=== PATIENT | male | born 1955 | race Caucasian/White ===

== ENCOUNTER 2018-05-11 18:48 | Inpatient (IN) | payer MEDICARE, SELFPAY ==
[2018-05-11] VITALS (64 sets, daily range): BP systolic 52–159; BP diastolic 21–129; PULSE 53–127; RESP 11–32; TEMP 34.4–36.1; O2SAT 76–100
[2018-05-11] MEDS: Normal Saline 1,000 ML 1000 ML IV (18:45)
[2018-05-11 19:13] LABS: Lactate-non-spesis 12.8 mmol/l (0.6-1.4)
[2018-05-11 19:18] LABS: Abs Immature Grans 0.17 k/cumm (0.0-0.09); HGB 12.3 g/dL (13.5-17.5); Mean Corp. HGB Concentration 32.4 g/dL (32.0-36.0); Mean Corpuscular Hemoglobin 36.6 pg (27.0-33.0); Mean Corpuscular Volume 113.1 fL (80-95); Mean Platelet Volume 9.4 fL (8.0-11.0); Platelet Count 151 x1000/uL (130-400); RBC 3.36 m/cumm (4.50-6.00); White Blood Cell Count 8.14 k/cumm (4.4-10.8)
--- NOTE | 2018-05-11 19:18 | DI.RAD_ITS ---
SYMPTOM/DIAGNOSIS: HANGING CERVICAL SPINE: AP view only was obtained. This film is not adequate to exclude cervical fracture. There is apparent NG tube and ET tube in place. Please see accompanying chest jessie report.
[2018-05-11 19:32] LABS: HCO3 12 mmol/L (22-28); pO2 113 mmHg (83-108); sO2 95 % (94-98); tCO2 13 mmol/L (22-29)
[2018-05-11 19:36] LABS: Absolute Eosinophil Count 0.08 k/cumm (0.0-0.7); Absolute Lymphocyte Count 6.43 k/cumm (1.2-3.4); Absolute Monocyte Count 0.49 k/cumm (0.11-0.7); Atypical Lymphocytes % 0; Diff Comment Manual Differential; Macrocytosis 1+; Polychromasia Present
[2018-05-11 19:38] LABS: ALT 323 U/L (12-78); AST 282 U/L (15-37); Albumin 3.3 g/dL (3.4-5.0); Alkaline Phosphatase 80 U/L (46-116); Anion Gap 16.6 mmol/L (3-11); BUN 12 mg/dL (7-18); Bilirubin, Total 0.2 mg/dL (0.2-1.0); CO2 21.4 mmol/L (21.0-32.0); CREATININE 1.37 mg/dL (0.70-1.30); Calcium 9.2 mg/dL (8.5-10.1); Chloride 102 mmol/L (98-107); Estimated GFR 52.83 (mL/min/1.73m2); Glucose 267 mg/dL (70-100); Magnesium 2.7 mg/dL (1.8-2.4); Potassium 4.3 mmol/L (3.5-5.1); Sodium 140 mmol/L (136-145); Total Protein 6.8 g/dL (6.4-8.2)
[2018-05-11 19:40] LABS: Troponin I 0.11 ng/mL (0.00-0.06)
[2018-05-11 19:44] LABS: FIO2 80 %; FIO2L Vent L; Site Left Radial; pCO2 62 mmHg (34-47)
--- NOTE | 2018-05-11 19:51 | DI.VRAD_ITS ---
EXAM: XR Chest, 1 View EXAM DATE/TIME: 05/11/2018 6:57 PM CLINICAL HISTORY: 62 years old, male; Device placement; Ett placement (vent status); Patient HX: Unresponsive TECHNIQUE: XR of the chest, 1 view. COMPARISON: CR CHEST 2 VIEWS PA,LAT 12/01/2015 6:07 PM FINDINGS: Tubes, catheters and devices: ET tube in good position. Feeding tube tip in stomach. Lungs: Bilateral opacities concerning for multifocal pneumonia. Pleural space: No pneumothorax. No sizable pleural effusion. Heart/Mediastinum: Cardiac size cannot be accurately assessed in this projection. Bones/joints: Bilateral shoulder arthroplasties. IMPRESSION: 1. ET tube in good position. 2. Bilateral opacities concerning for multifocal pneumonia. Dictated and Authenticated by: Lorenzo Burks MD. Ordering:CHRIS Alonso MD
[2018-05-11 20:06] LABS: Bilirubin Negative (Negative); Blood Small (Negative); Clarity Cloudy; Glucose Negative (Negative); Ketones Negative (Negative); Leukocyte Esterase Negative (Negative); Nitrite Negative (Negative); Specific Gravity 1.015 (1.005-1.025); Urobilinogen 0.2 EU/dL (Up TO 0.2)
--- NOTE | 2018-05-11 20:08 | ED.GENADUL_ITS ---
Discharge Plan Discharge Details Chief Complaint: CodeBlue Reason For Visit: [place] Primary Care Provider: GIULIANA NGUYEN ED Provider: Gavin Kelly Home Meds and New Rx's Prescriptions: No Action simvastatin 10 MG tablet 10 mg PO DAILY RF: 0 polyethylene glycol 3350 [Miralax] 17 GM powder in packet 17 g PO DAILY Qty: 255 RF: 0 aspirin [Aspirin Low-Strength] 81 MG tablet,chewable 325 mg PO DAILY RF: 0 milk thistle 150 MG capsule 1 cap PO DAILY RF: 0 omeprazole 20 MG capsule,delayed release(DR/EC) 20 mg PO DAILY RF: 0 clopidogrel [Plavix] 75 MG tablet 75 mg PO DAILY RF: 0 paroxetine HCl 20 MG tablet 1 tab PO DAILY RF: 0 Medical Decision Making Transported via EMS with CPR in progress for a hanging with associated drug overdose. T tube was emergently placed and Mr. Toney was treated with additional epinephrine. He had persistent asystole with no cardiac activity on 2 pulse checks. A decision was made to discontinue resuscitative. However, shortly after CPR and ventilation was discontinued, he had return of a normal rhythm on instructor of spanish and palpable pulse. BEedside ultrasound confirmed good cardiac activity. 2 additional IVs were placed and Mr. Crowley was resuscitated with IV crystalloid and, after a second episode of CPR which responded to epinephrine, and amiodarone drip was started. He had persistent recurrent bradycardia and hypotension which responded to epinephrine infusion. Chest x-ray confirmed ETT and NGT placement as well as pulmonary airway disease. Cervical x-ray diagnostic for no obvious cervical fracture. Patient admitted to the ICU for further resuscitation and management. Medical Records Medical records reviewed: Yes I reviewed the patient's medical records. Imaging Data Radiologic Study: Attestation: I personally reviewed and interpreted this imaging study as follows: Imaging: Ultrasound (Bedside cardiac) My impression: Initially cardiac standstill. Sub-evaluations consistent with cardiac activity. No RVS, pericardial effusion, interpreted independently and contemporaneously by myself. Radiologic Study #2: Attestation: I personally reviewed and interpreted this imaging study as follows: Imaging: X-Ray (Portable chest x-ray) My impression: ETT and NGT in good position. Diffuse airspace disease. Interpreted independently and contemporaneously by myself. Reviewed radiology report. Radiologist's impression: Same Radiologic Study #3: Attestation: I personally reviewed and interpreted this imaging study as follows: Imaging: X-Ray (Cervical) My impression: No cervical fracture. Pulmonary disease. Interpreted independently and contemporaneously by myself. Reviewed radiology report. Radiologist's impression: Same ECG Data Attestation: I personally reviewed and interpreted this ECG (s) as follows: Prior ECG tracings: not available for review Interpretation: Sinus rhythm 87 bpm. Intraventricular conduction delay nonspecific ST change interpreted independently and contemporaneously by myself. . 62-year-old gentleman with a past medical history which includes depression, cardiac disease and GERD transported here via EMS after being found with a self- inflicted hanging injury. According to veteran appeals reviewer and later the patient's ex-, he had been alone for approximately 20 minutes when his found him hanging and unresponsive. He also found empty bottles of morphine and gabapentin which she had apparently taken prior to hanging himself. His notes that he had been more depressed recently and verbalized earlier in the day that he no longer wanted to live. He also drank alcohol regularly prior to this event. His ex- caught the rope immediately on finding him and called EMS. EMS found Mr. Crowley unresponsive with agonal respirations but a palpable pulse. An IO and supraglottic airway was placed. However, en route, he had multiple episodes of cardiac arrest with ROSC after CPR and cardiac epinephrine. On arrival, Loli is unresponsive with no palpable pulse and CPR in progress. HPI General Date/Time Provider Initiated Documentation: 05/11/18 18:54 . Related Data Home Medications Medication Instructions Recorded Confirmed simvastatin 10 mg PO DAILY tab-cap 02/11/15 10/06/16 milk thistle 1 cap PO DAILY 03/22/15 10/06/16 aspirin [Aspirin Low-Strength] 325 mg PO DAILY tab-cap 09/25/15 10/06/16 polyethylene glycol 3350 [Miralax] 17 g PO DAILY #255 gm 09/25/15 10/06/16 omeprazole 20 mg PO DAILY 12/25/15 10/06/16 clopidogrel [Plavix] 75 mg PO DAILY 08/08/16 10/06/16 paroxetine HCl 1 tab PO DAILY 08/08/16 10/06/16 Allergies Allergy/AdvReac Type Severity Reaction Status Date / Time hay fever Allergy Mild sinus Uncoded 10/06/16 09:44 congestion General Stated Complaint: CodeBlue EMILY: 1 Review of Systems Review of Systems Unobtainable due to mental status PFSH Social History Smoking and Tabacco status: Former Tobacco Use Exam Const General: patient mechanically ventilated (Unresponsive with a supraglottic airway in place) HENMT Head: normocephalic Ears: external ears normal General nose exam: external nose normal Face and sinus: normal facial exam Mouth: oral mucosae normal Eyes Pupils: not reactive and pupil size (5mm) bilaterally Neck Neck: other (Cervical collar and ice) Chest Chest: normal inspection of the chest Resp Effort & Inspection: other (apneic) Auscultation: clear to auscultation bilaterally (With mechanical vent) Cardio Pulses: No normal peripheral pulses Other: No heart sounds by ausuctation Skin Wounds: no wounds Neuro General: not alert and not awake (Unresponsive) Sensory Exam: other Psych Mental Status: other (Unresponsive) Mood: other (Unresponsive) Course Vital Signs Respiratory Rate 14 05/11/18 18:45 Pulse Oximetry 100 05/11/18 18:45 Respiratory Rate 14 05/11/18 19:20 Pulse Oximetry 100 05/11/18 19:20 Respiratory End-tidal CO2 64 05/11/18 19:20 Fraction of Inspired Oxygen (FIO2) 80 05/11/18 19:20 Lab/Test Results Lab/Test Results: Laboratory Tests Range/Units 05/11/18 05/11/18 05/11/18 19:00 19:00 19:00 WBC (4.4-10.8) k/cumm 8.14 RBC (4.50-6.00) m/cumm 3.36 L Hgb (13.5-17.5) g/dL 12.3 L Hct (40.0-50.0) % 38.0 L MCV (80-95) fL 113.1 H MCH (27.0-33.0) pg 36.6 H MCHC (32.0-36.0) g/dL 32.4 RDW (11.8-14.1) % 14.0 Plt Count (130-400) x1000/uL 151 MPV (8.0-11.0) fL 9.4 Immature Gran % 0.0 Neutrophils % 11.0 Band Neutrophils % % 0.0 Lymphocytes % 79.0 Atypical Lymphs % 0 Monocytes % 6.0 Eosinophils % 1.0 Basophils % 0.0 Absolute Neutrophils (1.2-6.7) k/cumm 0.90 L Absolute Lymphocytes (1.2-3.4) k/cumm 6.43 H Absolute Monocytes (0.11-0.7) k/cumm 0.49 Absolute Eosinophils (0.0-0.7) k/cumm 0.08 Absolute Basophils (0.0-0.2) k/cumm 0.00 Metamyelocytes % 1.0 Myelocytes % 2.0 Differential Comment Manual differential RBC Morphology See below Polychromasia Present Macrocytosis 1+ Sample Site pCO2 (34-47) mmHg pO2 (83-108) mmHg O2 Saturation (94-98) % ABG pH (7.35-7.45) ABG HCO3 (22-28) mmol/L ABG Total CO2 (22-29) mmol/L ABG Base Excess (-3-3) mmol/L Oxygen Liter Flow L FiO2 % Sodium (136-145) mmol/L 140 Potassium (3.5-5.1) mmol/L 4.3 Chloride (98-107) mmol/L 102 Carbon Dioxide (21.0-32.0) mmol/L 21.4 Anion Gap (3-11) mmol/L 16.6 H BUN (7-18) mg/dL 12 Creatinine (0.70-1.30) mg/dL 1.37 H Estimated GFR/1.73 m2 (mL/min/1.73m2) 52.83 Glucose (70-100) mg/dL 267 H Lactate (0.6-1.4) mmol/l 12.8 H Calcium (8.5-10.1) mg/dL 9.2 Magnesium (1.8-2.4) mg/dL 2.7 H Total Bilirubin (0.2-1.0) mg/dL 0.2 AST (15-37) U/L 282 H ALT (12-78) U/L 323 H Alkaline Phosphatase (46-116) U/L 80 Troponin I (0.00-0.06) ng/mL 0.11 H* Total Protein (6.4-8.2) g/dL 6.8 Albumin (3.4-5.0) g/dL 3.3 L Range/Units 05/11/18 19:23 WBC (4.4-10.8) k/cumm RBC (4.50-6.00) m/cumm Hgb (13.5-17.5) g/dL Hct (40.0-50.0) % MCV (80-95) fL MCH (27.0-33.0) pg MCHC (32.0-36.0) g/dL RDW (11.8-14.1) % Plt Count (130-400) x1000/uL MPV (8.0-11.0) fL Immature Gran % Neutrophils % Band Neutrophils % % Lymphocytes % Atypical Lymphs % Monocytes % Eosinophils % Basophils % Absolute Neutrophils (1.2-6.7) k/cumm Absolute Lymphocytes (1.2-3.4) k/cumm Absolute Monocytes (0.11-0.7) k/cumm Absolute Eosinophils (0.0-0.7) k/cumm Absolute Basophils (0.0-0.2) k/cumm Metamyelocytes % Myelocytes % Differential Comment RBC Morphology Polychromasia Macrocytosis Sample Site Left radial pCO2 (34-47) mmHg 62 H* pO2 (83-108) mmHg 113 H O2 Saturation (94-98) % 95 ABG pH (7.35-7.45) 6.90 L* ABG HCO3 (22-28) mmol/L 12 L ABG Total CO2 (22-29) mmol/L 13 L ABG Base Excess (-3-3) mmol/L Oxygen Liter Flow L Vent FiO2 % 80 Sodium (136-145) mmol/L Potassium (3.5-5.1) mmol/L Chloride (98-107) mmol/L Carbon Dioxide (21.0-32.0) mmol/L Anion Gap (3-11) mmol/L BUN (7-18) mg/dL Creatinine (0.70-1.30) mg/dL Estimated GFR/1.73 m2 (mL/min/1.73m2) Glucose (70-100) mg/dL Lactate (0.6-1.4) mmol/l Calcium (8.5-10.1) mg/dL Magnesium (1.8-2.4) mg/dL Total Bilirubin (0.2-1.0) mg/dL AST (15-37) U/L ALT (12-78) U/L Alkaline Phosphatase (46-116) U/L Troponin I (0.00-0.06) ng/mL Total Protein (6.4-8.2) g/dL Albumin (3.4-5.0) g/dL Procedures Intubation Time out performed: Yes sedative: none paralytic: Rocuronium Mg Given: 100 Laryngoscope: fiberoptic video scope ET Tube Size: 7.5 ET Tube Uncuffed: No Tube Secured Depth (cm): 25 Tube Secured Location: lips Tube Placement Confirmation: visualized tube passing through cords, equal breath sounds bilaterally and confirmation by capnometry Patient Tolerated Procedure: well Intubation Complications: none Additional Comments: X-ray confirms tube 1 cm above the lavonne. Tube withdrawn 1 cm Critical Care Time Critical Care Time: Yes Total Critical Care Time: 60 Attestation: Time excludes intubation and bedside ultrasound
[2018-05-11 20:16] LABS: Bacteria Few HPF (Negative); C & S Indicated? No/Sq. Contamination; Casts Negative LPF (Negative); Crystals Negative HPF (Negative); Epithelial Cells Many HPF (Negative); Mucus Negative (Negative); WBC >50 HPF (0-5)
--- NOTE | 2018-05-11 20:58 | NUR.NOTE ---
Nursing Note: Prior to arrival patient was given 3 rounds of epi, 2 Narcan and an IO was placed in the LLE. 1834:Patient arrived in the Emergency department with CPR in progress. The patient was being bagged though a supraglottic airway. Patient still connected to EMS monitor no shock advised CPR resumed 1836: 100 mg of rocuronium given in the LLE IO by paul raymundo 183: Airway removed 1838: Provider intubating patient at this time with a 7 1/2 in ET tube using the glidescope no resistance with bagging felt. 183: lungs sounds present bilaterally 183: no cardiac activity noted with Ultrasound as observed by Provider. Provider observes a clot in R ventricle and no blood flow. NG tube placed L nare 68cm by Rebecca Molina RN green bile suctioned at this time. 1840: Round of epi given in the E IO site by MALGORZATA raymundo CPR started 1840: time of called by Provider. 1843: this continuity writer is at bed side a knotices bilateral radial pulses with movement in his chest no breathing. Provider notified ROSC/ spontaneous cardiac rhythm 1844: patient was placed on the ventilator. 184: NS bolus was started in the E IO site with a pressure bag. 1850: Tidal vol. 560 peep 10 Fi02 of 100% 1855: delgado placed 1907: pulse lost at this time CPR started 1908: Epi given at this time LAC site. 190: pulse regained at this time hr of 107 1910: patient taken off the back board with C- Spin precautions maintained. X ray taken for tube placement. 191: x ray finished at this time. 1916: amiodarone push 150 bolus given LAC and drip started at 1 mg/ min 1919: RAC IV established by Rishi Lane RN 18 G. 1924: this continuity writer notified provider in a change in patients color and in his heartrate, patients HR was slowing decreasing into the 50's and 40's. 1925: 3mg of EPI given in the RAC by Malgorzata RAYMUNDO 1926: pulse lost at this time CPR started 7 MG epi given in the RAC. 0: pulse regained at this time hr in the 70's. 1941: Epi drip started at 1 MCG/ min 1950: Epi drip titrated to 5 mcg/min 1952: IV fluids L #2 and L #3 finished in bilateral AC's and 2 new NS L hung at this time.
--- NOTE | 2018-05-11 21:20 | DI.VRAD_ITS ---
EXAM: XR Spine, 1 view. EXAM DATE/TIME: 05/11/2018 8:29 PM CLINICAL HISTORY: 62 years old, male; Injury or trauma; Injury history: Hanging; Injury: Hanging, c-spine, portable image; Initial encounter; Patient status: Unconscious; Injury date: 05/11/2018 TECHNIQUE: XR of the spine, 1 view. COMPARISON: CR XR cervical sp gaitan trauma 2-3V 05/11/2018 8:26 PM FINDINGS: Limitations: Cervical vertebra from C1-C6 are visualized. C7 is not confidently seen. Tubes, catheters and devices: Endotracheal tube is present visualized. Nasogastric tube is partially visualized. Vertebrae: Multilevel degenerative changes of the vertebra are present, as manifested by multilevel anterior osteophytes, endplate scelrosis, and multilevel posterior disc osteophyte complexes. No acutely displaced fracture or dislocation is grossly visualized in this limited films. Lungs: Diffuse haziness throughout the lungs favored diffuse airspace disease. Soft tissues: No acute findings. IMPRESSION: 1. Grossly, no acutely displaced fracture or dislocation is identified within the limits of this examination. Consider further evaluation with CT if there is further clinical concern for possible cervical spine fractures. 2. Bilateral pulmonary airspace disease, please review chest films performed on the same date Dictated and Authenticated by: Darwin Santiago MD. Ordering:CHRIS Alonso MD
[2018-05-11 22:47] LABS: Troponin I 1.88 ng/mL (0.00-0.06)
--- NOTE | 2018-05-11 23:35 | W.PM.HP.N ---
Date of service: 05/11/18 Time of Service: 23:35 Assessment and Plan (1) Cardiopulmonary arrest: Current visit: Yes Status: Acute secondary to drug overdose and hanging causing severe hypoxic cerebral ischemia and cardiac ischemia. Patient w/ successfuly ROSC but with poor prognosis d/t length of time of hypoxic event. Will continue supportive care w/ vasopressors, mechanical ventilation and antiarrythmic meds until family can decide on no code status and move towards comfort only measures (2) Acute respiratory failure: Current visit: Yes Status: Acute multifactorial including drug overdose of morphine and gabapentin in setting of acute alcohol intoxication and subsequent hanging causing restricted airflow/hypoxia. there also appears to be some pneumonia on CXR as well suggesting either a pre-existing pneumonia or an aspiration event. Will get blood and sputum cultures and begin on 4 hr infusions of Zosyn and add doxycycline for atypical coverage although I doubt this is simple CAP but rather is a result of his hanging and acute drug ingestion. Will also use stress dose corticosteroids and scheduled aerosolized bronchodilators. 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 For now just supportive care until he is extubated. Qualifiers: Encounter type: initial encounter Qualified Code(s): T71.162A - Asphyxiation due to hanging, intentional self-harm, initial encounter (4) Non-STEMI (non-ST elevated myocardial infarction): Current visit: Yes Status: Acute probably type 2 demand ischemic event d/t respiratory failure leading to CP arrest and CPR. For now will heparinize and give rectal ASA. check echo in a.m. to assess LV function. consult cardiology in a.m. (5) Acute kidney injury (nontraumatic): Current visit: Yes Status: Acute d/t to CP arrest and circulatory shock. cont. supportive care maintaining MAP pressures of 65 mm or higher, cont. iv fluids. monitor U.O. (6) Hypoxic brain injury: Current visit: Yes Status: Acute dismal prognosis based upon hx and exam. will check EEG in a.m., consult w/ neuro for prognostication but I expect that there will be no brain recovery even if he survives his CP arrest (7) Aspiration pneumonia: Current visit: Yes Status: Acute plan as above for broad spectrum antibiotics, aerosolized bronchodilators, stress dose corticosteroids, mechanical ventilatory support until family decision can be made regarding code status/comfort measures and withdrawal of life support Qualifiers: Aspiration pneumonia type: unspecified Laterality: bilateral Lung location: lower lobe of lung Qualified Code(s): J69.0 - Pneumonitis due to inhalation of food and vomit (8) Depression: Current visit: No Status: Chronic no treatment at this time unless he survives. Qualifiers: Active/Remission status: currently active Depression Type: major depressive disorder Major depression episode severity: severe Major depression recurrence: recurrent Psychotic features: without psychotic features Qualified Code(s): F33.2 - Major depressive disorder, recurrent severe without psychotic features History of Present Illness Chief Complaint: suicide attempt; cardiopulmonary arrest Narrative: 62 yr old male / [facility] of depression who presented to the ER via EMS with CPR in progress d/t cardiopulmonary arrest due to intentional drug overdose of morphine and gabapentin followed by hanging. Per ER notes, EMS reported and confirmed that the patient had been more depressed recently and had expressed feelings of no longer wanting to live. She reported that he had been drinking about 6 16 ounce beers prior to tonights event and that when she found him hanging and unresponsive she immediately cut down the rope. She says that when she found him he was still on his feet but he had a come along rope w/ ratchet around his neck suspended from the ceiling of their foyer. She indicated that he had been alone for about 20 minutes when she found him. She found empty prescription bottles for gabapentin and morphine. He took an unknown quantity of gabapentin but took approximately 30 tablets of morphine CR 15 mg tabs. According to EMS he wa found to have agonal respirations and palpable pulse on arrival. EMS started an IO for vascular access and placed a supraglottic airway. However, en route the patient had multiple episodes of cardiac arrest necessitating CPR and epinephrine. On arrival to the ER he was pulseless and CPR was in progress. While in the ER an ET tube was placed and the patient was given additional epinephrine. Due to persistent asystole confirmed by pulse checks and bedside echo, the decision had been made to call the code and pull the ET tube, however patient had return of sinus rhythm and ROSC. Addition iv's were placed and patient was given iv fluids and epinephrine drip for persistent hypotension. Patient was started on amiodarone for VT. CXR confirmed placement of NG and ETT tubes and c-spine xray showed no fractures. Patient was too unstable to go to CT scan for scan of head and neck. The patient was deemed by Dr. Kelly as too unstable for transport to a tertiary ICU. His exwife who was with the patient indicated that she still wanted full resuscitation for now. Review of Systems Review of Systems Unobtainable due to mental status [facility] Medical History Lumbar degenerative disc disease (Chronic) Chronic back pain (Chronic) Depression (Chronic) Surgical History S/P shoulder surgery (Resolved) Social History Smoking and Tabacco status: Former Tobacco Use Meds Home Medications Medication Instructions Recorded Confirmed Type simvastatin 10 mg PO DAILY tab-cap 02/11/15 10/06/16 History milk thistle 1 cap PO DAILY 03/22/15 10/06/16 History aspirin [Aspirin Low-Strength] 325 mg PO DAILY tab-cap 09/25/15 10/06/16 History polyethylene glycol 3350 [Miralax] 17 g PO DAILY #255 gm 09/25/15 10/06/16 History omeprazole 20 mg PO DAILY 12/25/15 10/06/16 History clopidogrel [Plavix] 75 mg PO DAILY 08/08/16 10/06/16 History paroxetine HCl 1 tab PO DAILY 08/08/16 10/06/16 History Allergies Allergy/AdvReac Type Severity Reaction Status Date / Time hay fever Allergy Mild sinus Uncoded 10/06/16 09:44 congestion Exam Const General: patient mechanically ventilated Nutritional Appearance: average body habitus Orientation: obtunded Limitations: altered mental status [facility] Head: normal to inspection, no palpable skull fracture, atraumatic and no acral cyanosis Ears: hearing grossly normal bilaterally and EAC's normal General nose exam: external nose normal, nares normal and nasal mucous membranes and turbinates normal Face and sinus: normal facial exam Mouth: oral mucosae normal, lip normal and tongue normal Eyes Alignment and Position: alignment normal Periorbital: periorbital findings normal Eyelids: eyelids normal Conjunctivae: conjunctivae normal Sclera: sclerae normal Cornea: corneas normal Pupils: anisocoria right pupil size greater than left, dilated on the right, fixed bilaterally, not reactive bilaterally and pupil size on the right 10 and on the left 5 EOM: movement deficit Direct ophthalmoscopy: no papilledema Neck Neck: trachea midline, no JVD and other (difficult to evaluate as patient is in cervical collar) Carotids: normal carotid upstroke Chest Chest: other (multiple tatoos over chest) Resp Effort & Inspection: other (ventilated, breathing at set ventilator rate) Auscultation: bronchovesicular breath sounds bilaterally, rhonchi upper bilaterally and wheezes scattered wheezes Cardio Jugular venous pressure: no JVD Palpation: normal PMI Rate: regular rate Rhythm: regular rhythm Pulses: posterior tibial pulses present bilaterally diminished and dopplerable and dorsalis pedis pulses present bilaterally diminished and dopplerable GI Inspection: normal to inspection Palpation: no hepatosplenomegaly Percussion: normal to percussion Auscultation: hypoactive bowel sounds Skin General skin exam: no mottling, no purpura and other (multiple tatoos over chest and arms) Lesions: no lesions Rashes: no rashes Trauma: no lacerations or abrasions Neuro General: obtunded (intubated and unresponsive to noxious stimuli; lack of corneal reflexes) and unable to assess gait Cranial Nerves: pupils not ERRL (anisocoria w/ dilated r. pupil at 10 mm, L pupil 5 mm, both are unresponse) and other (unable to assess CN function; unresponsive to noxious stimuli; comatose) Cognition: abnormal cognition Speech: other (intubated) Motor: other (decreased tone in all 4 extremities; absent reflexes) Sensory Exam: other (absent sensation to noxious stimulation) DTR's: Rt Triceps: 0, Lt Triceps: 0, Rt Biceps: 0, Lt Biceps: 0, Rt Patellar: 0, Lt Patellar: 0, Rt Ankle: 0 and Lt Ankle: 0 Plantar Reflexes: Upgoing: bilateral Comatose Patient: corneal reflex absent, doll's eye reflex absent and response to noxious stimuli absent Pupils: Dilated: right, Mid position: left and Fixed/non-reactive: bilateral Results Labs : 05/12/18 07:00 05/12/18 07:00 Laboratory Results - last 24 hr 05/11/18 05/11/18 05/11/18 19:00 19:00 19:00 WBC 8.14 RBC 3.36 L Hgb 12.3 L Hct 38.0 L MCV 113.1 H MCH 36.6 H MCHC 32.4 RDW 14.0 Plt Count 151 MPV 9.4 Immature Gran % 0.0 Neutrophils % 11.0 Band Neutrophils % 0.0 Lymphocytes % 79.0 Atypical Lymphs % 0 Monocytes % 6.0 Eosinophils % 1.0 Basophils % 0.0 Absolute Neutrophils 0.90 L Absolute Lymphocytes 6.43 H Absolute Monocytes 0.49 Absolute Eosinophils 0.08 Absolute Basophils 0.00 Metamyelocytes 1.0 Myelocytes 2.0 Differential Comment Manual differential RBC Morphology See below Polychromasia Present Macrocytosis 1+ Sample Site pCO2 pO2 O2 Saturation ABG pH ABG HCO3 ABG Total CO2 ABG Base Excess Oxygen Liter Flow FiO2 Sodium 140 Potassium 4.3 Chloride 102 Carbon Dioxide 21.4 Anion Gap 16.6 H BUN 12 Creatinine 1.37 H Estimated GFR/1.73 m2 52.83 Glucose 267 H Lactate 12.8 H Calcium 9.2 Magnesium 2.7 H Total Bilirubin 0.2 AST 282 H ALT 323 H Alkaline Phosphatase 80 Troponin I 0.11 H* Total Protein 6.8 Albumin 3.3 L Urine Color Urine Clarity Urine pH Ur Specific [place] Urine Protein Urine Ketones Urine Blood Urine Nitrite Urine Bilirubin Urine Urobilinogen Ur Leukocyte Esterase Urine RBC Urine WBC Ur Epithelial Cells Urine Crystals Urine Bacteria Urine Casts Urine Mucus Urine Other Ur Culture Indicated? Urine Glucose 05/11/18 05/11/18 05/11/18 19:23 19:56 22:00 WBC RBC Hgb Hct MCV MCH MCHC RDW Plt Count MPV Immature Gran % Neutrophils % Band Neutrophils % Lymphocytes % Atypical Lymphs % Monocytes % Eosinophils % Basophils % Absolute Neutrophils Absolute Lymphocytes Absolute Monocytes Absolute Eosinophils Absolute Basophils Metamyelocytes Myelocytes Differential Comment RBC Morphology Polychromasia Macrocytosis Sample Site Left radial pCO2 62 H* pO2 113 H O2 Saturation 95 ABG pH 6.90 L* ABG HCO3 12 L ABG Total CO2 13 L ABG Base Excess Oxygen Liter Flow Vent FiO2 80 Sodium Potassium Chloride Carbon Dioxide Anion Gap BUN Creatinine Estimated GFR/1.73 m2 Glucose Lactate Calcium Magnesium Total Bilirubin AST ALT Alkaline Phosphatase Troponin I 1.88 H* Total Protein Albumin Urine Color Straw Urine Clarity Cloudy Urine pH 7.0 Ur Specific [place] 1.015 Urine Protein 100 H Urine Ketones Negative Urine Blood Small H Urine Nitrite Negative Urine Bilirubin Negative Urine Urobilinogen 0.2 Ur Leukocyte Esterase Negative Urine RBC 5-10 H Urine WBC >50 Ur Epithelial Cells Many Urine Crystals Negative Urine Bacteria Few Urine Casts Negative Urine Mucus Negative Urine Other Many renal Ur Culture Indicated? No/sq. contamination Urine Glucose Negative Last Vital Signs Temp 34.7 C L 05/11/18 22:21 Pulse 78 05/11/18 22:21 Resp 14 05/11/18 22:45 BP 134/84 05/11/18 22:21 Pulse Ox 90 L 05/11/18 22:45
--- NOTE | 2018-05-11 23:38 | HPE_ITS ---
Date of service: 05/11/18 Time of Service: 23:35 Assessment and Plan (1) Cardiopulmonary arrest: Current visit: Yes Status: Acute secondary to drug overdose and hanging causing severe hypoxic cerebral ischemia and cardiac ischemia. Patient w/ successfuly ROSC but with poor prognosis d/t length of time of hypoxic event. Will continue supportive care w/ vasopressors, mechanical ventilation and antiarrythmic meds until family can decide on no code status and move towards comfort only measures (2) Acute respiratory failure: Current visit: Yes Status: Acute multifactorial including drug overdose of morphine and gabapentin in setting of acute alcohol intoxication and subsequent hanging causing restricted airflow/hypoxia. there also appears to be some pneumonia on CXR as well ca ggesting either a pre-existing pneumonia or an aspiration event. Will get blood and sputum cultures and begin on 4 hr infusions of Zosyn and add doxycycline for atypical coverage although I doubt this is simple CAP but rather is a result of his hanging and acute drug ingestion. Will also use stress dose corticosteroids and scheduled aerosolized bronchodilators. Will adjust his vent setting to keep MAP under 30 while trying to correct severe acidosis and hypoxemia Qualifiers: Respiratory failure complication: hypoxia Qualified Code(s): J96.01 - Acute respiratory failure with hypoxia (3) Suicide attempt by hanging: Current visit: Yes Status: Acute patient has had retirement severe depression although the family is unaware of any prior attempts at suicide. For now just supportive care until he is extubated. Qualifiers: Encounter type: initial encounter Qualified Code(s): T71.162A - Asphyxiation due to hanging, intentional self-harm, initial encounter (4) Non-STEMI (non-ST elevated myocardial infarction): Current visit: Yes Status: Acute probably type 2 demand ischemic event d/t respiratory failure leading to CP arrest and CPR. For now will heparinize and give rectal ASA. check echo in a.m. to assess LV function. consult cardiology in a.m. (5) Acute kidney injury (nontraumatic): Current visit: Yes Status: Acute d/t to CP arrest and circulatory shock. cont. supportive care maintaining MAP pressures of 65 mm or higher, cont. iv fluids. monitor U.O. (6) Hypoxic brain injury: Current visit: Yes Status: Acute dismal prognosis based upon hx and exam. will check EEG in a.m., consult w/ neuro for prognostication but I expect that there will be no brain recovery even if he survives his CP arrest (7) Aspiration pneumonia: Current visit: Yes Status: Acute plan as above for broad spectrum antibiotics, aerosolized bronchodilators, stress dose corticosteroids, mechanical ventilatory support until family decision can be made regarding code status/comfort measures and withdrawal of life support Qualifiers: Aspiration pneumonia type: unspecified Laterality: bilateral Lung location: lower lobe of lung Qualified Code(s): J69.0 - Pneumonitis due to inhalation of food and vomit (8) Depression: Current visit: No Status: Chronic no treatment at this time unless he survives. Qualifiers: Active/Remission status: currently active Depression Type: major depressive disorder Major depression episode severity: severe Major depression recurrence: recurrent Psychotic features: without psychotic features Qualified Code(s): F33.2 - Major depressive disorder, recurrent severe without psychotic features History of Present Illness Chief Complaint: suicide attempt; cardiopulmonary arrest Narrative: 62 yr old male / H of depression who presented to the ER via EMS with CPR in progress d/t cardiopulmonary arrest due to intentional drug overdose of morphine and gabapentin followed by hanging. Per ER notes, EMS reported and confirmed that the patient had been more depressed recently and had expressed feelings of no longer wanting to live. She reported that he had been drinking about 6 16 ounce beers prior to tonights event and that when she found him hanging and unresponsive she immediately cut down the rope. She says that when she found him he was still on his feet but he had a come along rope w/ ratchet around his neck suspended from the ceiling of their foyer. She indicated that he had been alone for about 20 minutes when she found him. She found empty prescription bottles for gabapentin and morphine. He took an unknown quantity of gabapentin but took approximately 30 tablets of morphine CR 15 mg tabs. According to EMS he wa found to have agonal respirations and palpable pulse on arrival. EMS started an IO for vascular access and placed a supraglottic airway. However, en route the patient had multiple episodes of cardiac arrest necessitating CPR and epinephrine. On arrival to the ER he was pulseless and CPR was in progress. While in the ER an ET tube was placed and the patient was given additional epinephrine. Due to persistent asystole confirmed by pulse checks and bedside echo, the decision had been made to call the code and pull the ET tube, however patient had return of sinus rhythm and ROSC. Addition iv's were placed and patient was given iv fluids and epinephrine drip for persistent hypotension. Patient was started on amiodarone for VT. CXR confirmed placement of NG and ETT tubes and c-spine xray showed no fractures. Patient was too unstable to go to CT scan for scan of head and neck. The patient was deemed by Dr. Kelly as too unstable for transport to a tertiary ICU. His exwife who was with the patient indicated that she still wanted full resuscitation for now. Review of Systems Review of Systems Unobtainable due to mental status [facility] Medical History Lumbar degenerative disc disease (Chronic) Chronic back pain (Chronic) Depression (Chronic) Surgical History S/P shoulder surgery (Resolved) Social History Smoking and Tabacco status: Former Tobacco Use Meds Home Medications Medication Instructions Recorded Confirmed Type simvastatin 10 mg PO DAILY tab-cap 02/11/15 10/06/16 History milk thistle 1 cap PO DAILY 03/22/15 10/06/16 History aspirin [Aspirin Low-Strength] 325 mg PO DAILY tab-cap 09/25/15 10/06/16 H istory polyethylene glycol 3350 [Miralax] 17 g PO DAILY #255 gm 09/25/15 10/06/16 History omeprazole 20 mg PO DAILY 12/25/15 10/06/16 History clopidogrel [Plavix] 75 mg PO DAILY 08/08/16 10/06/16 History paroxetine HCl 1 tab PO DAILY 08/08/16 10/06/16 History Allergies Allergy/AdvReac Type Severity Reaction Status Date / Time hay fever Allergy Mild sinus Uncoded 10/06/16 09:44 congestion Exam Const General: patient mechanically ventilated Nutritional Appearance: average body habitus Orientation: obtunded Limitations: altered mental status [facility] Head: normal to inspection, no palpable skull fracture, atraumatic and no acral cyanosis Ears: hearing grossly normal bilaterally and EAC's normal General nose exam: external nose normal, nares normal and nasal mucous membranes and turbinates normal Face and sinus: normal facial exam Mouth: oral mucosae normal, lip normal and tongue normal Eyes Alignment and Position: alignment normal Periorbital: periorbital findings normal Eyelids: eyelids normal Conjunctivae: conjunctivae normal Sclera: sclerae normal Cornea: corneas normal Pupils: anisocoria right pupil size greater than left, dilated on the right, f ixed bilaterally, not reactive bilaterally and pupil size on the right 10 and on the left 5 EOM: movement deficit Direct ophthalmoscopy: no papilledema Neck Neck: trachea midline, no JVD and other (difficult to evaluate as patient is in cervical collar) Carotids: normal carotid upstroke Chest Chest: other (multiple tatoos over chest) Resp Effort & Inspection: other (ventilated, breathing at set ventilator rate) Auscultation: bronchovesicular breath sounds bilaterally, rhonchi upper bilaterally and wheezes scattered wheezes Cardio Jugular venous pressure: no JVD Palpation: normal PMI Rate: regular rate Rhythm: regular rhythm Pulses: posterior tibial pulses present bilaterally diminished and dopplerable a nd dorsalis pedis pulses present bilaterally diminished and dopplerable GI Inspection: normal to inspection Palpation: no hepatosplenomegaly Percussion: normal to percussion Auscultation: hypoactive bowel sounds Skin General skin exam: no mottling, no purpura and other (multiple tatoos over chest and arms) Lesions: no lesions Rashes: no rashes Trauma: no lacerations or abrasions Neuro General: obtunded (intubated and unresponsive to noxious stimuli; lack of corneal reflexes) and unable to assess gait Cranial Nerves: pupils not ERRL (anisocoria w/ dilated r. pupil at 10 mm, L pup il 5 mm, both are unresponse) and other (unable to assess CN function; unresponsive to noxious stimuli; comatose) Cognition: abnormal cognition Speech: other (intubated) Motor: other (decreased tone in all 4 extremities; absent reflexes) Sensory Exam: other (absent sensation to noxious stimulation) DTR's: Rt Triceps: 0, Lt Triceps: 0, Rt Biceps: 0, Lt Biceps: 0, Rt Patellar: 0, Lt Patellar: 0, Rt Ankle: 0 and Lt Ankle: 0 Plantar Reflexes: Upgoing: bilateral Comatose Patient: corneal reflex absent, doll's eye reflex absent and response to noxious stimuli absent Pupils: Dilated: right, Mid position: left and Fixed/non-reactive: bilateral Results Labs : 05/12/18 07:00 05/12/18 07:00 Laboratory Results - last 24 hr 05/11/18 05/11/18 05/11/18 19:00 19:00 19:00 WBC 8.14 RBC 3.36 L Hgb 12.3 L Hct 38.0 L MCV 113.1 H MCH 36.6 H MCHC 32.4 RDW 14.0 Plt Count 151 MPV 9.4 Immature Gran % 0.0 Neutrophils % 11.0 Band Neutrophils % 0.0 Lymphocytes % 79.0 Atypical Lymphs % 0 Monocytes % 6.0 Eosinophils % 1.0 Basophils % 0.0 Absolute Neutrophils 0.90 L Absolute Lymphocytes 6.43 H Absolute Monocytes 0.49 Absolute Eosinophils 0.08 Absolute Basophils 0.00 Metamyelocytes 1.0 Myelocytes 2.0 Differential Comment Manual differential RBC Morphology See below Polychromasia Present Macrocytosis 1+ Sample Site pCO2 pO2 O2 Saturation ABG pH ABG HCO3 ABG Total CO2 ABG Base Excess Oxygen Liter Flow FiO2 Sodium 140 Potassium 4.3 Chloride 102 Carbon Dioxide 21.4 Anion Gap 16.6 H BUN 12 Creatinine 1.37 H Estimated GFR/1.73 m2 52.83 Glucose 267 H Lactate 12.8 H Calcium 9.2 Magnesium 2.7 H Total Bilirubin 0.2 AST 282 H ALT 323 H Alkaline Phosphatase 80 Troponin I 0.11 H* Total Protein 6.8 Albumin 3.3 L Urine Color Urine Clarity Urine pH Ur Specific [place] Urine Protein Urine Ketones Urine Blood Urine Nitrite Urine Bilirubin Urine Urobilinogen Ur Leukocyte Esterase Urine RBC Urine WBC Ur Epithelial Cells Urine Crystals Urine Bacteria Urine Casts Urine Mucus Urine Other Ur Culture Indicated? Urine Glucose 05/11/18 05/11/18 05/11/18 19:23 19:56 22:00 WBC RBC Hgb Hct MCV MCH MCHC RDW Plt Count MPV Immature Gran % Neutrophils % Band Neutrophils % Lymphocytes % Atypical Lymphs % Monocytes % Eosinophils % Basophils % Absolute Neutrophils Absolute Lymphocytes Absolute Monocytes Absolute Eosinophils Absolute Basophils Metamyelocytes Myelocytes Differential Comment RBC Morphology Polychromasia Macrocytosis Sample Site Left radial pCO2 62 H* pO2 113 H O2 Saturation 95 ABG pH 6.90 L* ABG HCO3 12 L ABG Total CO2 13 L ABG Base Excess Oxygen Liter Flow Vent FiO2 80 Sodium Potassium Chloride Carbon Dioxide Anion Gap BUN Creatinine Estimated GFR/1.73 m2 Glucose Lactate Calcium Magnesium Total Bilirubin AST ALT Alkaline Phosphatase Troponin I 1.88 H* Total Protein Albumin Urine Color Straw Urine Clarity Cloudy Urine pH 7.0 Ur Specific [place] 1.015 Urine Protein 100 H Urine Ketones Negative Urine Blood Small H Urine Nitrite Negative Urine Bilirubin Negative Urine Urobilinogen 0.2 Ur Leukocyte Esterase Negative Urine RBC 5-10 H Urine WBC >50 Ur Epithelial Cells Many Urine Crystals Negative Urine Bacteria Few Urine Casts Negative Urine Mucus Negative Urine Other Many renal Ur Culture Indicated? No/sq. contamination Urine Glucose Negative Last Vital Signs Temp 34.7 C L 05/11/18 22:21 Pulse 78 05/11/18 22:21 Resp 14 05/11/18 22:45 BP 134/84 05/11/18 22:21 Pulse Ox 90 L 05/11/18 22:45
[2018-05-12] VITALS (56 sets, daily range): BP systolic 50–97; BP diastolic 14–62; PULSE 38–135; RESP 14–45; TEMP 36.1–37.7; O2SAT 91–99
[2018-05-12] MEDS: Lactated Ringers 1,000 ML 100 ML IV ×2 (00:23→01:12)
[2018-05-12 01:14] LABS: Troponin I 4.38 ng/mL (0.00-0.06)
[2018-05-12] MEDS: Normal Saline Flush 10 ML SYR IVP (01:32)
[2018-05-12 01:44] LABS: Abs Immature Grans 0.15 k/cumm (0.0-0.09); HCT 34.7 % (40.0-50.0); HGB 11.3 g/dL (13.5-17.5); Mean Corp. HGB Concentration 32.6 g/dL (32.0-36.0); Mean Corpuscular Hemoglobin 36.7 pg (27.0-33.0); Mean Corpuscular Volume 112.7 fL (80-95); Mean Platelet Volume 9.4 fL (8.0-11.0); RBC 3.08 m/cumm (4.50-6.00); RBC Distribution Width 14.2 % (11.8-14.1); White Blood Cell Count 18.17 k/cumm (4.4-10.8)
[2018-05-12 01:45] LABS: HCO3 (Venous) 13 mmol/L (22-28); TCO2 (Venous) 13 mmol/L (22-29); pCO2 (Venous) 55 mm/Hg (34-47); pO2 (Venous) 38 mm/Hg (28-44)
[2018-05-12 01:46] LABS: O2 Sat (Venous) 57 % (70-80)
[2018-05-12 01:48] LABS: Anion Gap 19.7 mmol/L (3-11); BUN 14 mg/dL (7-18); CO2 15.3 mmol/L (21.0-32.0); CREATININE 1.89 mg/dL (0.70-1.30); Calcium 7.4 mg/dL (8.5-10.1); Chloride 106 mmol/L (98-107); Estimated GFR 36.44 (mL/min/1.73m2); Glucose 292 mg/dL (70-100); Potassium 4.5 mmol/L (3.5-5.1); Sodium 141 mmol/L (136-145); pH (Venous) 6.98 (7.32-7.43)
[2018-05-12 01:56] LABS: Absolute Lymphocyte Count 2.54 k/cumm (1.2-3.4); Absolute Monocyte Count 0.91 k/cumm (0.11-0.7); Absolute Neutrophil Count 14.54 k/cumm (1.2-6.7)
[2018-05-12 01:57] LABS: Burr Cells (echinocyte) 2+; Diff Comment Manual Differential
[2018-05-12 01:58] LABS: Macrocytosis 2+; Ovalocytes 2+; Platelet Count 197 x1000/uL (130-400)
[2018-05-12] MEDS: Sodium Bicarbonate 50 MEQ/50 ML SYR 90 MEQ IVP (02:24)
[2018-05-12] MEDS: Hydrocortisone SOD SUC. 100 MG VIAL 50 MG IVP (02:42)
[2018-05-12 02:47] LABS: PTT Activated 34.8 sec (21.0-31.4)
[2018-05-12] MEDS: PIPERACILLIN/TAZO 3.375 GM in Normal Saline 50 ML IVPB (03:07)
[2018-05-12] MEDS: Albuterol/Ipratropium 3 ML UPD VIAL UPD (06:08)
[2018-05-12] MEDS: Pantoprazole 40 MG VIAL IVP (06:08)
--- NOTE | 2018-05-12 06:26 | DI.RAD_ITS ---
SYMPTOM/DIAGNOSIS: HANGING, RESPIRATORY FAILURE PORTABLE AP CHEST: Supine AP chest at 0628 hours. There is an endotracheal tube in good position and an NG tube in place, the tip of which lies in the stomach. There are bilateral diffuse pulmonary interstitial infiltrates which are nonspecific but which may represent ARDS in the clinical setting of asphyxiation. No other specific abnormality is seen. Appropriate follow up studies requested.
[2018-05-12 07:36] LABS: Abs Immature Grans 0.12 k/cumm (0.0-0.09); Absolute Basophil Count 0.02 k/cumm (0.0-0.2); Absolute Monocyte Count 1.23 k/cumm (0.11-0.7); Basophils % 0.2; HCT 29.8 % (40.0-50.0); HGB 9.4 g/dL (13.5-17.5); Lymphocytes % 10.6; Mean Corp. HGB Concentration 31.5 g/dL (32.0-36.0); Mean Corpuscular Volume 114.2 fL (80-95); Mean Platelet Volume 9.5 fL (8.0-11.0); Monocytes % 10.4; Neutrophils % 77.8; Platelet Count 156 x1000/uL (130-400); RBC 2.61 m/cumm (4.50-6.00); RBC Distribution Width 14.3 % (11.8-14.1); White Blood Cell Count 11.84 k/cumm (4.4-10.8)
[2018-05-12 07:43] LABS: Absolute Lymphocyte Count 1.26 k/cumm (1.2-3.4); Absolute Neutrophil Count 9.21 k/cumm (1.2-6.7)
--- NOTE | 2018-05-12 08:11 | NUR.NOTE ---
Nursing Note: Received patient from ED at 2200. Patient hypotensive and unresponsive showing no pupillary response and no gag reflex when suctioned. MD at bedside and new orders received (see EMR). Communicated with MD throughout shift regarding hypotension despite medications. MD changed dosages for fluids (see MAR). Family present at bedside and decided to change patient code status to DNR. Family updated on plan of care. Hypotension still persistent and MD aware.
[2018-05-12 08:17] LABS: Albumin 1.9 g/dL (3.4-5.0); Alkaline Phosphatase 77 U/L (46-116); Anion Gap 18.1 mmol/L (3-11); BUN 16 mg/dL (7-18); Bilirubin, Total 0.5 mg/dL (0.2-1.0); CO2 15.9 mmol/L (21.0-32.0); CREATININE 2.74 mg/dL (0.70-1.30); Calcium 7.1 mg/dL (8.5-10.1); Chloride 110 mmol/L (98-107); Estimated GFR 23.74 (mL/min/1.73m2); Glucose 124 mg/dL (70-100); NT-proBNP 590 pg/mL; Potassium 5.3 mmol/L (3.5-5.1); Sodium 144 mmol/L (136-145); Total Protein 4.2 g/dL (6.4-8.2)
[2018-05-12 08:21] LABS: Troponin I 7.45 ng/mL (0.00-0.06)
[2018-05-12 08:38] LABS: ALT 1589 U/L (12-78); AST 1910 U/L (15-37)
[2018-05-12 10:25] LABS: PTT Activated > 155.0 sec (21.0-31.4)
--- NOTE | 2018-05-12 11:34 | PHARADMIT ---
Admission Pharmacy Clinical Review CARDIOPULMONARY ARREST FROM HANGING, OVERDOSE patient has been placed on QUANTITATIVE DEVELOPER with Morphine Infusion for comfort.
--- NOTE | 2018-05-12 12:32 | W.PM.DS.N ---
Date of service: 05/12/18 Time of Service: 12:33 DS: Diagnosis Discharge Diagnosis (1) Cardiopulmonary arrest: Status: Acute (2) Acute respiratory failure: Status: Acute (3) Suicide attempt by hanging: Status: Acute (4) Non-STEMI (non-ST elevated myocardial infarction): Status: Acute (5) Acute kidney injury (nontraumatic): Status: Acute (6) Hypoxic brain injury: Status: Acute (7) Aspiration pneumonia: Status: Acute (8) Depression: Status: Chronic Discharge Plan Disposition Patient Disposition: Discharge Details Reason For Visit: CARDIOPULMONARY ARREST SECONDARY TO HANGING Admit Date/Time: 05/11/18 21:23 Admit Provider: Evan Grace Attending Provider: Evan Grace Primary Care Provider: GIULIANA NGUYEN Hospital Course Hospital Course: Please see H&P from Dr. Huddleston dated 05/11/18. In brief, 62-year-old man with past medical history significant for depression, who attempted suicide with an overdose of his morphine and gabapentin, followed by hanging. The patient was found to have agonal respirations by EMS but with a palpable pulse, prior to experiencing a cardiopulmonary arrest in route to the ED. He underwent what amounted to a lengthy code, intubated, with eventual return of cardiac function. He was however found to have a lack of a gag reflex or response to pain as per verbal report by admitting attending, and also found to have fixed and dilated pupils bilaterally confirmed this morning on exam. Patient was made DNR/DNI at time of admission following discussion with his family. Further conversation was had this morning, and the patient's family including his current , ex-, and daughters all agreed to comfort measures level of care. He was maintaining a minimal systolic blood pressure despite 2 pressors, and was bradycardic with this. Prior to withdrawal of any major care (epinephrine had run out) Mr. Crowley , with time of expiration being 11 AM on 05/12/2018. Organ donation was not an option as family confirmed that he was not an organ donor. Discharge Data Cause of : Suicide attempt DS: Data Vitals/I&O Vitals and I&O: Vital Signs Temperature 37.7 C H 05/12/18 08:14 Temperature Source Tympanic 05/12/18 08:14 Pulse 103 H 05/12/18 10:30 Pulse 44 L 05/12/18 10:30 Respiratory Rate 16 05/12/18 10:30 Respiratory Effort 05/12/18 08:14 Blood Pressure 70/48 L 05/12/18 10:30 Blood Pressure Mean 53 05/12/18 10:30 Pulse Oximetry 99 05/12/18 10:30 Respiratory End-tidal CO2 25 05/12/18 10:30 Oxygen Delivery Method Mechanical Ventilator 05/12/18 08:14 Oxygen Flow Rate 0 05/12/18 08:14 Fraction of Inspired Oxygen (FIO2) 100 05/12/18 08:14 Pain Level 0 05/11/18 23:31 Comment 05/12/18 02:25 Intake & Output 05/11/18 05/12/18 05/12/18 23:59 11:59 23:59 Intake Total 1000 / 1000 3806.248 / 3806.248 Output Total 50 / 50 0 / 0 Balance 950 / 950 3806.248 / 3806.248 Weight 92.9 kg Intake: IV 1000 / 1000 3806.248 / 3806.248 Output: Urine 50 / 50 0 / 0 Other: Urine Color Yellow Urine Appearance Clear Labs on day of discharge: Labs from last 24 hours 05/12/18 05/12/18 05/12/18 22:00 09:00 08:30 WBC RBC Hgb Hct MCV MCH MCHC RDW Plt Count MPV Immature Gran % Neutrophils % Band Neutrophils % Lymphocytes % Atypical Lymphs % Monocytes % Eosinophils % Basophils % Absolute Neutrophils Absolute Lymphocytes Absolute Monocytes Absolute Eosinophils Absolute Basophils Metamyelocytes Myelocytes Differential Comment RBC Morphology Polychromasia Macrocytosis Ovalocytes [place] Cells APTT > 155.0 H* D Sample Site Pending pCO2 Pending pO2 Pending O2 Saturation Pending ABG pH Pending ABG HCO3 Pending ABG Total CO2 Pending ABG Base Excess Pending VBG pH VBG pCO2 VBG pO2 VBG HCO3 VBG Total CO2 VBG O2 Saturation VBG Base Excess Oxygen Liter Flow FiO2 Sodium Potassium Chloride Carbon Dioxide Anion Gap BUN Creatinine Estimated GFR/1.73 m2 Glucose Lactate Cancelled Calcium Magnesium Total Bilirubin AST ALT Alkaline Phosphatase Troponin I NT-Pro-B Natriuret Pep Total Protein Albumin Urine Color Urine Clarity Urine pH Ur Specific [place] Urine Protein Urine Ketones Urine Blood Urine Nitrite Urine Bilirubin Urine Urobilinogen Ur Leukocyte Esterase Urine RBC Urine WBC Ur Epithelial Cells Urine Crystals Urine Bacteria Urine Casts Urine Mucus Urine Other Ur Culture Indicated? Urine Glucose 05/12/18 05/12/18 05/12/18 07:00 07:00 07:00 WBC 11.84 H D RBC 2.61 L Hgb 9.4 L Hct 29.8 L MCV 114.2 H MCH 36.0 H MCHC 31.5 L RDW 14.3 H Plt Count 156 MPV 9.5 Immature Gran % 1.0 Neutrophils % 77.8 Band Neutrophils % Lymphocytes % 10.6 Atypical Lymphs % Monocytes % 10.4 Eosinophils % 0.0 Basophils % 0.2 Absolute Neutrophils 9.21 H Absolute Lymphocytes 1.26 Absolute Monocytes 1.23 H Absolute Eosinophils 0.00 Absolute Basophils 0.02 Metamyelocytes Myelocytes Differential Comment RBC Morphology Polychromasia Macrocytosis Ovalocytes [place] Cells APTT Sample Site pCO2 pO2 O2 Saturation ABG pH ABG HCO3 ABG Total CO2 ABG Base Excess VBG pH VBG pCO2 VBG pO2 VBG HCO3 VBG Total CO2 VBG O2 Saturation VBG Base Excess Oxygen Liter Flow FiO2 Sodium 144 Potassium 5.3 H Chloride 110 H Carbon Dioxide 15.9 L Anion Gap 18.1 H BUN 16 Creatinine 2.74 H D Estimated GFR/1.73 m2 23.74 Glucose 124 H D Lactate 11.0 H Calcium 7.1 L Magnesium Total Bilirubin 0.5 AST 1910 H ALT 1589 H Alkaline Phosphatase 77 Troponin I 7.45 H* NT-Pro-B Natriuret Pep 590 H Total Protein 4.2 L Albumin 1.9 L Urine Color Urine Clarity Urine pH Ur Specific [place] Urine Protein Urine Ketones Urine Blood Urine Nitrite Urine Bilirubin Urine Urobilinogen Ur Leukocyte Esterase Urine RBC Urine WBC Ur Epithelial Cells Urine Crystals Urine Bacteria Urine Casts Urine Mucus Urine Other Ur Culture Indicated? Urine Glucose 05/12/18 05/12/18 05/12/18 02:18 00:45 00:45 WBC 18.17 H D RBC 3.08 L Hgb 11.3 L Hct 34.7 L MCV 112.7 H MCH 36.7 H MCHC 32.6 RDW 14.2 H Plt Count 197 MPV 9.4 Immature Gran % 1.0 Neutrophils % 75.0 Band Neutrophils % 5.0 Lymphocytes % 14.0 Atypical Lymphs % Monocytes % 5.0 Eosinophils % 0.0 Basophils % 0.0 Absolute Neutrophils 14.54 H Absolute Lymphocytes 2.54 Absolute Monocytes 0.91 H Absolute Eosinophils 0.00 Absolute Basophils 0.00 Metamyelocytes Myelocytes Differential Comment Manual differential RBC Morphology See below Polychromasia Macrocytosis 2+ Ovalocytes 2+ [place] Cells 2+ APTT 34.8 H Sample Site pCO2 pO2 O2 Saturation ABG pH ABG HCO3 ABG Total CO2 ABG Base Excess VBG pH VBG pCO2 VBG pO2 VBG HCO3 VBG Total CO2 VBG O2 Saturation VBG Base Excess Oxygen Liter Flow FiO2 Sodium 141 Potassium 4.5 Chloride 106 Carbon Dioxide 15.3 L Anion Gap 19.7 H BUN 14 Creatinine 1.89 H Estimated GFR/1.73 m2 36.44 Glucose 292 H Lactate Calcium 7.4 L Magnesium Total Bilirubin AST ALT Alkaline Phosphatase Troponin I NT-Pro-B Natriuret Pep Total Protein Albumin Urine Color Urine Clarity Urine pH Ur Specific [place] Urine Protein Urine Ketones Urine Blood Urine Nitrite Urine Bilirubin Urine Urobilinogen Ur Leukocyte Esterase Urine RBC Urine WBC Ur Epithelial Cells Urine Crystals Urine Bacteria Urine Casts Urine Mucus Urine Other Ur Culture Indicated? Urine Glucose 05/12/18 05/12/18 05/12/18 00:45 00:45 00:45 WBC RBC Hgb Hct MCV MCH MCHC RDW Plt Count MPV Immature Gran % Neutrophils % Band Neutrophils % Lymphocytes % Atypical Lymphs % Monocytes % Eosinophils % Basophils % Absolute Neutrophils Absolute Lymphocytes Absolute Monocytes Absolute Eosinophils Absolute Basophils Metamyelocytes Myelocytes Differential Comment RBC Morphology Polychromasia Macrocytosis Ovalocytes [place] Cells APTT Sample Site pCO2 pO2 O2 Saturation ABG pH ABG HCO3 ABG Total CO2 ABG Base Excess VBG pH 6.98 L VBG pCO2 55 H VBG pO2 38 VBG HCO3 13 L VBG Total CO2 13 L VBG O2 Saturation 57 L VBG Base Excess Oxygen Liter Flow FiO2 Sodium Potassium Chloride Carbon Dioxide Anion Gap BUN Creatinine Estimated GFR/1.73 m2 Glucose Lactate 10.0 H Calcium Magnesium Total Bilirubin AST ALT Alkaline Phosphatase Troponin I 4.38 H* NT-Pro-B Natriuret Pep Total Protein Albumin Urine Color Urine Clarity Urine pH Ur Specific [place] Urine Protein Urine Ketones Urine Blood Urine Nitrite Urine Bilirubin Urine Urobilinogen Ur Leukocyte Esterase Urine RBC Urine WBC Ur Epithelial Cells Urine Crystals Urine Bacteria Urine Casts Urine Mucus Urine Other Ur Culture Indicated? Urine Glucose 05/11/18 05/11/18 05/11/18 22:00 19:56 19:23 WBC RBC Hgb Hct MCV MCH MCHC RDW Plt Count MPV Immature Gran % Neutrophils % Band Neutrophils % Lymphocytes % Atypical Lymphs % Monocytes % Eosinophils % Basophils % Absolute Neutrophils Absolute Lymphocytes Absolute Monocytes Absolute Eosinophils Absolute Basophils Metamyelocytes Myelocytes Differential Comment RBC Morphology Polychromasia Macrocytosis Ovalocytes [place] Cells APTT Sample Site Left radial pCO2 62 H* pO2 113 H O2 Saturation 95 ABG pH 6.90 L* ABG HCO3 12 L ABG Total CO2 13 L ABG Base Excess VBG pH VBG pCO2 VBG pO2 VBG HCO3 VBG Total CO2 VBG O2 Saturation VBG Base Excess Oxygen Liter Flow Vent FiO2 80 Sodium Potassium Chloride Carbon Dioxide Anion Gap BUN Creatinine Estimated GFR/1.73 m2 Glucose Lactate Calcium Magnesium Total Bilirubin AST ALT Alkaline Phosphatase Troponin I 1.88 H* NT-Pro-B Natriuret Pep Total Protein Albumin Urine Color Straw Urine Clarity Cloudy Urine pH 7.0 Ur Specific [place] 1.015 Urine Protein 100 H Urine Ketones Negative Urine Blood Small H Urine Nitrite Negative Urine Bilirubin Negative Urine Urobilinogen 0.2 Ur Leukocyte Esterase Negative Urine RBC 5-10 H Urine WBC >50 Ur Epithelial Cells Many Urine Crystals Negative Urine Bacteria Few Urine Casts Negative Urine Mucus Negative Urine Other Many renal Ur Culture Indicated? No/sq. contamination Urine Glucose Negative 05/11/18 05/11/18 05/11/18 19:00 19:00 19:00 WBC 8.14 RBC 3.36 L Hgb 12.3 L Hct 38.0 L MCV 113.1 H MCH 36.6 H MCHC 32.4 RDW 14.0 Plt Count 151 MPV 9.4 Immature Gran % 0.0 Neutrophils % 11.0 Band Neutrophils % 0.0 Lymphocytes % 79.0 Atypical Lymphs % 0 Monocytes % 6.0 Eosinophils % 1.0 Basophils % 0.0 Absolute Neutrophils 0.90 L Absolute Lymphocytes 6.43 H Absolute Monocytes 0.49 Absolute Eosinophils 0.08 Absolute Basophils 0.00 Metamyelocytes 1.0 Myelocytes 2.0 Differential Comment Manual differential RBC Morphology See below Polychromasia Present Macrocytosis 1+ Ovalocytes [place] Cells APTT Sample Site pCO2 pO2 O2 Saturation ABG pH ABG HCO3 ABG Total CO2 ABG Base Excess VBG pH VBG pCO2 VBG pO2 VBG HCO3 VBG Total CO2 VBG O2 Saturation VBG Base Excess Oxygen Liter Flow FiO2 Sodium 140 Potassium 4.3 Chloride 102 Carbon Dioxide 21.4 Anion Gap 16.6 H BUN 12 Creatinine 1.37 H Estimated GFR/1.73 m2 52.83 Glucose 267 H Lactate 12.8 H Calcium 9.2 Magnesium 2.7 H Total Bilirubin 0.2 AST 282 H ALT 323 H Alkaline Phosphatase 80 Troponin I 0.11 H* NT-Pro-B Natriuret Pep Total Protein 6.8 Albumin 3.3 L Urine Color Urine Clarity Urine pH Ur Specific [place] Urine Protein Urine Ketones Urine Blood Urine Nitrite Urine Bilirubin Urine Urobilinogen Ur Leukocyte Esterase Urine RBC Urine WBC Ur Epithelial Cells Urine Crystals Urine Bacteria Urine Casts Urine Mucus Urine Other Ur Culture Indicated? Urine Glucose 05/12/18 02:28 Blood Blood Culture - Pending 05/12/18 02:18 Blood Blood Culture - Pending Preliminary micro results at discharge 05/12/18 02:28 Blood Culture - Pending Blood 05/12/18 02:18 Blood Culture - Pending Blood PFSH Medical History Lumbar degenerative disc disease (Chronic) Chronic back pain (Chronic) Depression (Chronic) Surgical History S/P shoulder surgery (Resolved) Social History Smoking and Tabacco status: Former Tobacco Use
--- NOTE | 2018-05-12 15:29 | NUR.NOTE ---
Nursing Note: 1230 check examiner arrived and completed assessment of patient; [address] [facility] arrived to receive patient; all lines/tubes removed and patient cleaned prior.
--- NOTE | 2018-05-12 16:52 | CHAPLAIN ---
I met David's Malika last night (05/11) when he was brought to the ER. Chaplain Kaci Chaudhari had been called in and was with Malika in the evening. I returned about 10:30 p.m. Malika was waiting for David's three daughters, their mom (David's exwife) and esme who were driving up through rough weather from [facility] where they all live. Malika talked about David shoveling snow around his house and driveway and becoming angry when the town plow come through filling the end of the driveway with more snow. David put handmade sign in his yard expressing his anger about this. Malika said later that David was drinking beer in another part of the house and eventually she discovered him standing, but unresponsive. It appeared to her that he had taken a lot of his medicine and attempted to hang himself. Malika, the daughters, their mom and esme spent the night here with David after he was intubated and moved from the ER to the ICU. This morning Dr. Marques explained to the family that David was not responding and his body was being kept alive by the ventilator and medicine given to increase his blood pressure, but that there was very little chance he would survive. A plan was made to withdraw supports, however David before that, about 11 a.m. His family was with him. The family requested a tile sorter to administer anointing of sick and Fr. Gamboa arrived to do that before David . David's family members felt supported. They were offered time, individually and as a family, to spend with David before and after he . They were clearly devastated by David's and frustrated by the fact he own actions led to this. I offered a prayer with them after David . Each of the daughters was giving a prayer shawl.
== END 2018-05-12 14:00 | disposition expired | DRG 922 ==
LOC: ER 20:23 → ICU 22:24
PROVIDERS: Nurse Practitioner Family; Admitting Provider Internal Medicine; Emergency Provider Emergency Medicine; PCP Family Medicine; Visit Provider Internal Medicine
DX: T71.162A Asphyxiation due to hanging, intentional self-harm, initial encounter (principal); I21.A1 Myocardial infarction type 2; J96.01 Acute respiratory failure with hypoxia; J69.0 Pneumonitis due to inhalation of food and vomit; N17.9 Acute kidney failure, unspecified; G93.1 Anoxic brain damage, not elsewhere classified; F33.2 Major depressive disorder, recurrent severe without psychotic features
CPT/HCPCS: 31500; 36415; 51702; 80048; 80053; 82805; 87040; 92950; 93005; 96361; 96365; 96366; 96374; 96375; 96376; 99223; 99238; 99291; 36600; 71045; 72040; 81003; 81015; 83605; 83735; 83880; 84484; 85025; 85730; 93010; 94002; J0171; J1720; J2543; J3490; J7620